=== PATIENT | male | born 1960 | race Caucasian/White ===

== ENCOUNTER → 2016-06-02 | Outpatient (CLI) | payer MEDICARE ==
[~2016-06-02] MED LIST: ACETAMINOPHEN TAB 325 MG TAB PO ONE; SODIUM CHLORIDE 0.9% 250 ML in EMPTY BAG 1 BAG IV PRN; SODIUM CHLORIDE 0.9% 500 ML in EMPTY BAG 1 BAG IV PRN; diphenhydrAMINE 50 MG/ML 1 ML VIAL IVP ONE
[2016-06-02 09:58] VITALS: RESP 16; TEMP 97.4
[2016-06-02 11:42] VITALS: BP 110/74; PULSE 54
== END | disposition home or self-care (01) ==
LOC: PROCWHC3 09:41
PROVIDERS: ATTEND Internal Medicine Rheumatology
DX: L40.59 Other psoriatic arthropathy (principal)
CPT/HCPCS: 96361; 96375; 96413; 96415; J1200; J1745

== ENCOUNTER → 2016-07-28 | Outpatient (CLI) | payer MEDICARE ==
[~2016-07-28] MED LIST changes: -ACETAMINOPHEN TAB 325 MG TAB PO ONE; -diphenhydrAMINE 50 MG/ML 1 ML VIAL IVP ONE
[2016-07-28 12:52] VITALS: TEMP 98
[2016-07-28 14:45] VITALS: BP 108/64; PULSE 60; RESP 16
== END | disposition home or self-care (01) ==
LOC: PROCWHC3 12:35
PROVIDERS: ATTEND Internal Medicine Rheumatology
DX: L40.59 Other psoriatic arthropathy (principal)
CPT/HCPCS: 96361; 96413; 96415; J1745

== ENCOUNTER → 2016-09-22 | Outpatient (CLI) | payer MEDICARE ==
[~2016-09-22] MED LIST changes: +ACETAMINOPHEN TAB 325 MG TAB PO ONE; +diphenhydrAMINE 50 MG/ML 1 ML VIAL IVP ONE
[2016-09-22 13:53] VITALS: TEMP 98.3
[2016-09-22 14:27] VITALS: RESP 18
[2016-09-22 15:17] VITALS: BP 110/71; PULSE 66
== END | disposition home or self-care (01) ==
LOC: PROCWHC3 12:54
PROVIDERS: ATTEND Internal Medicine Rheumatology
DX: L40.50 Arthropathic psoriasis, unspecified (principal)
CPT/HCPCS: 96413; 96415; J1200; J1745; 96375

== ENCOUNTER → 2016-11-17 | Outpatient (CLI) | payer MEDICARE ==
[2016-11-17 12:57] VITALS: RESP 16; TEMP 97.8
[2016-11-17 14:12] VITALS: BP 135/91; PULSE 64
== END | disposition home or self-care (01) ==
LOC: PROCWHC3 12:42
PROVIDERS: ATTEND Internal Medicine Rheumatology
DX: L40.59 Other psoriatic arthropathy (principal)
CPT/HCPCS: 96375; 96413; 96415; J1200; J1745

== ENCOUNTER → 2017-01-16 | Outpatient (CLI) | payer MEDICARE ==
[~2017-01-16] MED LIST changes: -SODIUM CHLORIDE 0.9% 250 ML in EMPTY BAG 1 BAG IV PRN
[2017-01-16 10:32] VITALS: RESP 16; TEMP 97.6
[2017-01-16 12:07] VITALS: BP 122/90; PULSE 76
== END | disposition home or self-care (01) ==
LOC: PROCWHC3 10:22
PROVIDERS: ATTEND Internal Medicine Rheumatology
DX: L40.59 Other psoriatic arthropathy (principal)
CPT/HCPCS: 96375; 96413; 96415; J1200; J1745